=== PATIENT | male | born 1955 | race Caucasian/White ===

== ENCOUNTER 2019-01-28 15:19 | Emergency (ER) | payer OTHER ==
[~2019-01-28] VITALS: Ht 172.7 cm; Wt 98.9 kg
[~2019-01-28 15:19] MED LIST: AMBIEN5 MG; ANDROGEL1.25 GM; ASA81 MG; LASIX20 MG; LIPITOR40 MG; LOPRESSOR HCT 11 TAB; LOTREL 5/40 MG1 CAP; PRILOSEC20 MG; PRISTIQ ER50 MG; ZANTAC300 MG
[2019-01-28] MEDS ORDERED: HYDROCHLOROTHIA25 MG (16:13)
[2019-01-28] MEDS ORDERED: ZESTRIL10 M1 (16:13)
== END 2019-01-28 22:16 | disposition home or self-care (01) ==
LOC: ER 15:19
DX: S00.83XA Contusion of other part of head, initial encounter (principal); S00.12XA Contusion of left eyelid and periocular area, initial encounter; W01.198A Fall on same level from slipping, tripping and stumbling with subsequent striking against other object, initial encounter; Y93.89 Activity, other specified; Y92.018 Other place in single-family (private) house as the place of occurrence of the external cause; Y99.8 Other external cause status